=== PATIENT | male | born 1980 | race Caucasian/White ===

== ENCOUNTER 2018-08-16 05:26 | Day surgery (SDC) | payer MEDICAID ==
[2018-08-16] MEDS ORDERED: Dextrose 5%-Lactated Ringers 1,000 ML IV SCH (06:00)
[2018-08-16] MEDS ORDERED: fentaNYL 100 MCG/2 ML SDV ONE (07:15)
[2018-08-16] MEDS ORDERED: Glycopyrrolate 0.2 MG/ML 2 ML SDV IVPUSH ONE (07:15)
[2018-08-16] MEDS ORDERED: Propofol 200 MG/20 ML SDV ONE ×2 (07:15→07:34)
[2018-08-16] MEDS ORDERED: Midazolam 1 MG/ML 2 ML SDV ONE (07:15)
[2018-08-16 08:56] VITALS: BP 127/64
--- NOTE | 2018-08-23 13:14 | OR ---
DATE OF PROCEDURE: 08/16/2018 PREOPERATIVE DIAGNOSIS: Epigastric pain with history of gastroesophageal reflux disease and peptic ulcer disease. POSTOPERATIVE DIAGNOSES: 1. Small hiatal hernia with gastroesophageal reflux disease with multiple healing linear ulcers in esophagogastric junction. 2. [id number] antral gastritis and duodenitis. PROCEDURE: Esophagogastroduodenoscopy with: 1. Biopsies of antrum for CLOtest. 2. Biopsies of esophagogastric junction for histologic evaluation. ANESTHESIA: IV sedation. INDICATIONS FOR PROCEDURE: This is a 38-year-old presenting with ongoing problems with gastroesophageal reflux disease. The patient recently had been on omeprazole, but on 07/15/2018 was switched to Protonix 40 mg a day. On , i.e. around 3 weeks later, he felt that he had quite a bit in the way of improvement of the reflux symptoms, but he still had some discomfort across the upper abdomen. The plan is to proceed with upper GI endoscopy with biopsies as indicated. Potential risks including bleeding and perforation were discussed, and the patient wishes to proceed. DETAILS OF PROCEDURE: The patient was taken to the operating room and placed in a left lateral decubitus position. IV sedation was administered, after which the upper GI endoscope was passed orally through the length of the esophagus, and into the stomach with retroflexion view of the fundus, thereafter through the pyloric channel and into the proximal duodenum. Findings included normal hypopharynx, larynx, upper esophageal sphincter, esophageal body. At the area of the EG junction, the patient was noted to have a small hiatal hernia. There were several linear upward extensions which were at this point covered with what appeared to be some healing type fibrinous exudate consistent with healing of linear ulcers. There was no stricturing, plaquing, or gross sense of neoplasia within the stomach on retroflexion view of the small hiatal hernia. In the antrum, there was some dgyr-ne-dyoorzzy antral gastritis, but with no erosions or ulcers, and associated duodenitis involving the duodenal bulb again without erosions or ulcers beyond the duodenal bulb at the junction of the third and fourth portions of the duodenum, the findings were otherwise normal. At this point, biopsies were obtained from the antrum and sent for CLOtest for H. pylori. Multiple biopsies were then obtained from the esophagogastric junction and sent for histologic evaluation. Minimal bleeding from the biopsy sites was seen and the procedure then concluded. The patient was taken to the recovery room in satisfactory condition. At this point, the patient's symptoms appeared to be improved quite a bit on the Protonix. We will see the patient back in 1 month and make sure those remain improved. I discussed long-term treatment options. At the age of 38, he may wish to opt for surgical antireflux procedure and avoid medical management, particularly if that medical management controlling his symptoms. We will also need to consider whether or not he might be having some side effects of the Protonix. If he continues to have the more nebulous upper and mid abdominal pain, at that point plan will be to see the patient back in 1 month for recheck. Kashif Vieira MD /[id number]
== END 2018-08-16 08:50 | disposition home or self-care (01) ==
LOC: JP.SDS 05:26
PROVIDERS: ATTEND Surgery
DX: K29.70 Gastritis, unspecified, without bleeding (principal); K29.80 Duodenitis without bleeding; K21.9 Gastro-esophageal reflux disease without esophagitis; K44.9 Diaphragmatic hernia without obstruction or gangrene; E66.9 Obesity, unspecified; F17.210 Nicotine dependence, cigarettes, uncomplicated; Z87.11 Personal history of peptic ulcer disease; Z79.899 Other long term (current) drug therapy
CPT/HCPCS: 87081; 88305; J2250; J2704; J3010; J3490; J7042

== ENCOUNTER 2018-08-26 05:12 | Emergency (ER) | payer MEDICAID ==
[2018-08-26] MEDS ORDERED: Ketorolac 30 MG/ML SDV IVPUSH ONE (05:54)
[2018-08-26] MEDS ORDERED: methylPREDNISolone Sodium Succinate 125 MG/2 ML SDV IVPUSH ONE (05:54)
[2018-08-26] MEDS ORDERED: Sodium Chloride 0.9% 1,000 ML IV SCH (06:00)
--- NOTE | 2018-08-26 06:30 | EDM.PDOC ---
<Juan Smith - Last Filed: 08/26/18 06:27> ED HPI GENERAL MEDICAL PROBLEM - General Chief Complaint: ENT Problem Stated Complaint: SORE THROAT, TESTED POSITIVE FOR STREP Time Seen by Provider: 08/26/18 06:05 Source of Information: Reports: Patient History Limitations: Reports: No Limitations - History of Present Illness INITIAL COMMENTS - FREE TEXT/NARRATIVE: 38-year-old male who was diagnosed with strep 3 days ago, but has been on cephalexin for the last 3 days. The left side of his throat has worsened over the past day, he is having difficulty swallowing and pain is radiating to the left ear and is very uncomfortable. His family also tested positive for strep, they are improving. He denies any significant fevers or chills. No other symptoms such as cough or shortness of breath. The pain is particularly bad on the left side. Onset: Gradual (Worse over the last 24 hours) Worsens with: Reports: Other (Swallowing) Associated Symptoms: Denies: Chest Pain, Cough, Fever/Chills, Nausea/Vomiting Treatments TALENT ACQUISITION LEAD: Reports: Acetaminophen, Other (see below) Other Treatments TALENT ACQUISITION LEAD: antibiotics Throat Pain Score (Numeric/FACES): 6 - Related Data Allergies Allergy/AdvReac Type Severity Reaction Status Date / Time No Known Allergies Allergy Verified 08/26/18 05:42 Home Meds: Home Meds Pantoprazole Sodium [Protonix] 40 mg PO DAILY 08/12/18 [History] Ketorolac [Toradol] 10 mg PO TID PRN #20 tab 08/26/18 [Rx] cephALEXin [Cephalexin] 500 mg PO BID 08/26/18 [History] Past Medical History Gastrointestinal History: Reports: GERD Musculoskeletal History: Reports: Fracture Endocrine/Metabolic History: Reports: Obesity/BMI 30+ - Infectious Disease History Infectious Disease History: Reports: Chicken Pox - Past Surgical History HEENT Surgical History: Reports: Other (See Below) Other HEENT Surgeries/Procedures: wisdom teeth extraction GI Surgical History: Reports: Appendectomy, EGD Other GI Surgeries/Procedures: Hiatal hernia Other Musculoskeletal Surgeries/Procedures:: fractures of right leg at age 5. fracture to left arm at age 11 Social & Family History - Family History Family Medical History: Noncontributory Cardiac: Reports: Hypertension - Tobacco Use Smoking Status *Q: Current Every Day Smoker Years of Tobacco use: 15 Packs/Tins Daily: 0.7 Second Hand Smoke Exposure: Yes - Caffeine Use Caffeine Use: Reports: Coffee, Soda - Recreational Drug Use Recreational Drug Use: No ED ROS ENT - Review of Systems Review Of Systems: See Below Constitutional: Denies: Fever, Chills HEENT: Reports: Ear Pain (Left side), Throat Pain Respiratory: Denies: Shortness of Breath Cardiovascular: Denies: Chest Pain GI/Abdominal: Denies: Nausea, Vomiting Skin: Reports: No Symptoms Neurological: Reports: No Symptoms ED EXAM, ENT - Physical Exam Exam: See Below Exam Limited By: No Limitations General Appearance: Alert, No Apparent Distress (Patient is uncomfortable but not acutely distressed) Ears: Normal TMs Mouth/Throat: Other (Patient has bilateral tonsillar erythema, swelling and exudate with a small amount of increased soft tissue swelling on the left side.) Head: Atraumatic Neck: Lymphadenopathy (L) (Cervical adenopathy is more pronounced on the left, more tender) Respiratory/Chest: No Respiratory Distress, Lungs Clear Course - Vital Signs Last Recorded V/S: Last Vital Signs Temp 95.6 F 08/26/18 08:02 Pulse 85 08/26/18 08:02 Resp 16 08/26/18 08:02 BP 144/91 H 08/26/18 08:02 Pulse Ox 98 08/26/18 08:02 - Orders/Labs/Meds Orders: Active Orders 24 hr Category Date Time Status Soft Tissue Neck w Cont [CT] Stat Exams 08/26/18 06:41 Taken Iopamidol [Isovue-300 (61%)] Med 08/26/18 06:49 Active 100 ml IV . DIRECTED PRN Sodium Chloride 0.9% [Normal Saline] 1,000 ml Med 08/26/18 06:00 Active IV ASDIRECTED Sodium Chloride 0.9% [Normal Saline] 70 ml Med 08/26/18 07:00 Active IV ASDIRECTED Sodium Chloride 0.9% [Saline Flush] Med 08/26/18 07:00 Active 10 ml FLUSH ONETIME Medication Orders Sodium Chloride (Normal Saline) 1,000 mls @ 500 mls/hr IV ASDIRECTED NAYAN Last Admin: 08/26/18 06:08 Dose: 500 mls/hr Sodium Chloride (Normal Saline) 70 mls @ 3 mls/sec IV ASDIRECTED NAYAN Last Admin: 08/26/18 07:44 Dose: 3 mls/sec Iopamidol (Isovue-300 (61%)) 100 ml IV . DIRECTED PRN PRN Reason: RADIOLOGY EXAM Stop: 08/27/18 06:50 Last Admin: 08/26/18 07:44 Dose: 100 ml Sodium Chloride (Saline Flush) 10 ml FLUSH ONETIME [facility] Last Admin: 08/26/18 07:44 Dose: 10 ml Labs: Laboratory Tests 08/26/18 08/26/18 08/26/18 Range/Units 06:10 06:10 06:10 WBC 9.2 (4.5-11.0) K/uL RBC 5.50 (4.30-5.90) M/uL Hgb 15.5 H (12.0-15.0) g/dL Hct 45.3 (40.0-54.0) % MCV 82 (80-98) fL MCH 28 (27-31) pg MCHC 34 (32-36) % Plt Count 178 (150-400) K/uL Neut % (Auto) 64 (36-66) % Lymph % (Auto) 22 L (24-44) % Evangeline % (Auto) 12 H (2-6) % Eos % (Auto) 2 (2-4) % Baso % (Auto) 1 (0-1) % Sodium 137 L (140-148) mmol/L Potassium 4.2 (3.6-5.2) mmol/L Chloride 101 (100-108) mmol/L Carbon Dioxide 28 (21-32) mmol/L Anion Gap 12.2 (5.0-14.0) mmol/L BUN 14 (7-18) mg/dL Creatinine 0.9 (0.8-1.3) mg/dL Est Cr Clr Drug Dosing 117.16 mL/min Estimated GFR (MDRD) > 60 (>60) Glucose 98 (74-106) mg/dL Calcium 9.5 (8.5-10.1) mg/dL Monoscreen Negative (NEGATIVE) Meds: Medications Generic Name Dose Route Start Last Admin Trade Name Freq PRN Reason Stop Dose Admin Sodium Chloride 1,000 mls @ 500 mls/hr 08/26/18 06:00 08/26/18 06:08 Normal Saline IV 500 mls/hr ASDIRECTED NAYAN Administration Sodium Chloride 70 mls @ 3 mls/sec 08/26/18 07:00 08/26/18 07:44 Normal Saline IV 3 mls/sec ASDIRECTED NAYAN Administration Iopamidol 100 ml 08/26/18 06:49 08/26/18 07:44 Isovue-300 (61%) IV 08/27/18 06:50 100 ml . DIRECTED PRN Administration RADIOLOGY EXAM Sodium Chloride 10 ml 08/26/18 07:00 08/26/18 07:44 Saline Flush FLUSH 10 ml ONETIME NAYAN Administration Discontinued Medications Generic Name Dose Route Start Last Admin Trade Name Gentryq PRN Reason Stop Dose Admin Ketorolac Tromethamine 30 mg 08/26/18 05:54 08/26/18 06:10 Toradol IVPUSH 08/26/18 05:55 30 mg ONETIME ONE Administration Methylprednisolone Sodium Succinate 125 mg 08/26/18 05:54 08/26/18 06:13 Solu-Medrol IVPUSH 08/26/18 05:55 125 mg ONETIME ONE Administration - Re-Assessments/Exams Free Text/Narrative Re-Assessment/Exam: 08/26/18 06:29 An IV was started, patient was hydrated with normal saline, given 125 mg of IV Solu-Medrol and 30 mg of IV Toradol. CBC and Monospot were obtained as well as a BMP, its likely will need a soft tissue CT scan to assess for peritonsillar abscess on the left side. Departure - Departure Disposition: Home, Self-Care 01 Clinical Impression: Acute streptococcal pharyngitis - Discharge Information Referrals: Sj Rivas MD [Primary Care Provider] - Forms: ED Department Discharge Additional Instructions: Complete course of antibiotics I restarted, your prescription for Toradol has been faxed to [facility] use this medication as needed for pain control, Please followup with your primary care provider in 3-5 days if not better, please call return to the emergency department with worsening of symptoms. <OfficerPantera - Last Filed: 08/26/18 08:19> Departure - Departure Time of Disposition: 08:18 Condition: Good - Assessment/Plan Plan: Assessment Acuity = acute Site and laterality = streptococcal pharyngitis Etiology = group A streptococcus Manifestations = early phlegmon versus abscess 13 mm x 5 mm Location of injury = Home Lab values = CBC, BMP, Monospot all negative CT scan describes a phlegmon versus abscess left tonsillar pillar Plan I did review lab work and CT scan results with him he had good relief from Toradol plan is to fax a prescription to [facility] for Toradol 10 mg by mouth 3 times a day when necessary total #20 follow-up with primary care 3-5 days, complete the course of cephalexin constitution party initiated This note was dictated using [employer] voice recognition software please call with any questions on syntax or grammar.
[2018-08-26] MEDS ORDERED: Iopamidol 612 MG/ML 100 ML Bottle IV PRN (06:49)
[2018-08-26] MEDS ORDERED: Sodium Chloride 0.9% 10 ML Syringe FLUSH SCH (07:00)
[2018-08-26 08:06] VITALS: BP 144/91
== END 2018-08-26 08:35 | disposition home or self-care (01) ==
LOC: JP.ED 05:12
DX: J02.0 Streptococcal pharyngitis (principal); K21.9 Gastro-esophageal reflux disease without esophagitis; F17.210 Nicotine dependence, cigarettes, uncomplicated; Z79.899 Other long term (current) drug therapy
CPT/HCPCS: 36415; 70491; 80048; 85025; 86308; 96361; 96374; 96375; 99284; J1885; J2930; J7030; Q9967

== ENCOUNTER 2018-08-29 23:20 | Emergency (ER) | payer MEDICAID ==
[2018-08-29 23:58] VITALS: BP 149/101
--- NOTE | 2018-08-30 01:12 | EDM.PDOC ---
ED HPI GENERAL MEDICAL PROBLEM - General Chief Complaint: ENT Problem Stated Complaint: SORE THROAT Time Seen by Provider: 08/29/18 23:55 Source of Information: Reports: Patient History Limitations: Reports: No Limitations - History of Present Illness INITIAL COMMENTS - FREE TEXT/NARRATIVE: pt was found to have a small abcess on cat scan. He is on clindomycin and the swelling hads gone down. He has not been able to rest and he is just concerned that he is going to get worse again like happened when he was on the keflex. Duration: Day(s): Location: Reports: Neck Quality: Reports: Sharp Associated Symptoms: Reports: Other (painful throat on the rt. ) throat Pain Score (Numeric/FACES): 2 - Related Data Allergies Allergy/AdvReac Type Severity Reaction Status Date / Time No Known Allergies Allergy Verified 08/26/18 05:42 Home Meds: Home Meds Pantoprazole Sodium [Protonix] 40 mg PO DAILY 08/12/18 [History] Ketorolac [Toradol] 10 mg PO TID PRN #20 tab 08/26/18 [Rx] Clindamycin HCl [Cleocin HCl] 300 mg PO TID 08/29/18 [History] Past Medical History Gastrointestinal History: Reports: GERD Musculoskeletal History: Reports: Fracture Endocrine/Metabolic History: Reports: Obesity/BMI 30+ - Infectious Disease History Infectious Disease History: Reports: Chicken Pox - Past Surgical History HEENT Surgical History: Reports: Other (See Below) Other HEENT Surgeries/Procedures: wisdom teeth extraction GI Surgical History: Reports: Appendectomy, EGD Other GI Surgeries/Procedures: Hiatal hernia Other Musculoskeletal Surgeries/Procedures:: fractures of right leg at age 5. fracture to left arm at age 11 Social & Family History - Family History Family Medical History: Noncontributory Cardiac: Reports: Hypertension - Tobacco Use Smoking Status *Q: Current Every Day Smoker Years of Tobacco use: 18 Packs/Tins Daily: 0.8 - Caffeine Use Caffeine Use: Reports: Coffee, Soda - Alcohol Use Days Per Week of Alcohol Use: 2 Number of Drinks Per Day: 3 Total Drinks Per Week: 6 - Recreational Drug Use Recreational Drug Use: No ED ROS ENT - Review of Systems Review Of Systems: See Below Constitutional: Reports: Malaise, Weakness, Other (left side of the throat is still quite painful and it hurts when he turns his head. ) HEENT: Reports: Throat Pain Respiratory: Reports: No Symptoms Cardiovascular: Reports: No Symptoms Endocrine: Reports: No Symptoms GI/Abdominal: Reports: No Symptoms : Reports: No Symptoms ED EXAM, ENT - Physical Exam Exam: See Below Text/Narrative:: pt is concerned because he fells like he has the taste of pus going down the back of his throat. He does not have a fever. Exam Limited By: No Limitations General Appearance: Alert, Mild Distress, Other ( He still does have some swelling on the left but it has gone down. ) Ears: Normal TMs Nose: Normal Inspection Mouth/Throat: Other ( left tonsilar area is swollen more than the rt. ) Head: Atraumatic Neck: Normal Inspection Respiratory/Chest: No Respiratory Distress Course - Vital Signs Last Recorded V/S: Last Vital Signs Temp 37.0 C 08/29/18 23:56 Pulse 85 08/29/18 23:56 Resp 18 08/29/18 23:56 BP 149/101 H 08/29/18 23:56 Pulse Ox 100 08/29/18 23:56 - Orders/Labs/Meds Labs: Laboratory Tests 08/29/18 08/29/18 08/30/18 Range/Units 23:40 23:40 00:39 WBC 10.8 (4.5-11.0) K/uL RBC 5.32 (4.30-5.90) M/uL Hgb 14.7 (12.0-15.0) g/dL Hct 44.3 (40.0-54.0) % MCV 83 (80-98) fL MCH 28 (27-31) pg MCHC 33 (32-36) % Plt Count 226 (150-400) K/uL Neut % (Auto) 58 (36-66) % Lymph % (Auto) 31 (24-44) % Morrison % (Auto) 10 H (2-6) % Eos % (Auto) 1 L (2-4) % Baso % (Auto) 1 (0-1) % Sodium 140 (140-148) mmol/L Potassium 4.4 (3.6-5.2) mmol/L Chloride 102 (100-108) mmol/L Carbon Dioxide 30 (21-32) mmol/L Anion Gap 8.5 (5.0-14.0) mmol/L BUN 24 H D (7-18) mg/dL Creatinine 1.0 (0.8-1.3) mg/dL Est Cr Clr Drug Dosing 102.12 mL/min Estimated GFR (MDRD) > 60 (>60) Glucose 93 (74-106) mg/dL Calcium 9.5 (8.5-10.1) mg/dL Total Bilirubin 0.2 (0.2-1.0) mg/dL AST 34 (15-37) U/L ALT 96 H (12-78) U/L Alkaline Phosphatase 98 (46-116) U/L Total Protein 7.6 (6.4-8.2) g/dL Albumin 3.3 L (3.4-5.0) g/dL Globulin 4.3 H (2.3-3.5) g/dL Albumin/Globulin Ratio 0.8 L (1.2-2.2) Monoscreen Negative (NEGATIVE) Departure - Departure Time of Disposition: 01:11 Disposition: Home, Self-Care 01 Condition: Fair Clinical Impression: Tonsil, abscess - Discharge Information Referrals: PCP,None [Primary Care Provider] - Forms: ED Department Discharge Care Plan Goals: clindomycin --continue as ordered, cont torodol, percocet 5/325 q6h prn for pain , follow up if not improving in the next 2-3 days.
== END 2018-08-30 01:25 | disposition home or self-care (01) ==
LOC: JP.ED 23:20
DX: J36 Peritonsillar abscess (principal); K21.9 Gastro-esophageal reflux disease without esophagitis; E66.9 Obesity, unspecified; F17.200 Nicotine dependence, unspecified, uncomplicated; Z79.899 Other long term (current) drug therapy; Z79.2 Long term (current) use of antibiotics
CPT/HCPCS: 36415; 80053; 85025; 86308; 99283

== ENCOUNTER 2019-03-06 09:20 | Emergency (ER) | payer MEDICAID ==
--- NOTE | 2019-03-06 10:06 | EDM.PDOC ---
ED HPI GENERAL MEDICAL PROBLEM - General Chief Complaint: Cardiovascular Problem Stated Complaint: STOMACH ISSUES HEART FLUTTERING Time Seen by Provider: 03/06/19 09:45 Source of Information: Reports: Patient History Limitations: Reports: No Limitations - History of Present Illness INITIAL COMMENTS - FREE TEXT/NARRATIVE: 38-year-old male with a known hiatal hernia, on Prevacid has been having increased upper abdominal pressure, burping, and on a full stomach he has palpitations. This morning it was more persistent than usual so came in to have it checked. He has a lot of cardiac history in his family and is concerned about his heart. He has no radiation of pain other than up the chest substernally but not into the neck, no radiation to the back or shoulders. No shortness of breath, diaphoresis, nausea or vomiting. He is a regular smoker and is not getting exercise. Onset: Unknown/Unsure Location: Reports: Chest, Abdomen Quality: Reports: Pressure Associated Symptoms: Reports: Other (Palpitations) - Related Data Allergies Allergy/AdvReac Type Severity Reaction Status Date / Time No Known Allergies Allergy Verified 03/06/19 09:40 Home Meds: Home Meds Pantoprazole Sodium [Protonix] 40 mg PO DAILY 08/12/18 [History] Aspirin [Halfprin] 1 tab PO DAILY 03/06/19 [History] Chlorthalidone 1 tab PO DAILY 03/06/19 [History] atorvaSTATin [Lipitor] 1 tab PO DAILY 03/06/19 [History] Past Medical History Cardiovascular History: Reports: High Cholesterol, Hypertension Gastrointestinal History: Reports: GERD, Hiatal Hernia Musculoskeletal History: Reports: Fracture Endocrine/Metabolic History: Reports: Obesity/BMI 30+ - Infectious Disease History Infectious Disease History: Reports: Chicken Pox - Past Surgical History HEENT Surgical History: Reports: Other (See Below) Other HEENT Surgeries/Procedures: wisdom teeth extraction GI Surgical History: Reports: Appendectomy, EGD Social & Family History - Family History Family Medical History: Noncontributory Cardiac: Reports: Hypertension - Tobacco Use Smoking Status *Q: Light Tobacco Smoker Years of Tobacco use: 18 Packs/Tins Daily: 0.7 - Caffeine Use Caffeine Use: Reports: Coffee, Soda - Recreational Drug Use Recreational Drug Use: No ED ROS GENERAL - Review of Systems Review Of Systems: See Below Constitutional: Denies: Fever, Chills, Decreased Appetite HEENT: Reports: No Symptoms Respiratory: Denies: Shortness of Breath, Wheezing Cardiovascular: Reports: Chest Pain, Palpitations GI/Abdominal: Reports: Abdominal Pain (In the epigastric area and substernal area only). Denies: Nausea, Vomiting Skin: Reports: No Symptoms Neurological: Reports: No Symptoms Psychiatric: Reports: Anxiety ED EXAM, GENERAL - Physical Exam Exam: See Below Exam Limited By: No Limitations General Appearance: Alert, No Apparent Distress Eye Exam: Bilateral Eye: Normal Inspection Head: Atraumatic Neck: Normal Inspection Respiratory/Chest: No Respiratory Distress, Lungs Clear Cardiovascular: Regular Rate, Rhythm. No: Extra Beats GI/Abdominal: Soft, Other (Some discomfort in the upper abdomen to palpation, no focal tenderness and no rebound) Extremities: Normal Inspection. No: Pedal Edema Neurological: Alert, Oriented Psychiatric: Anxious Course - Vital Signs Last Recorded V/S: Last Vital Signs Temp 96.3 F 03/06/19 09:39 Pulse 80 03/06/19 10:01 Resp 23 H 03/06/19 10:01 BP 155/106 H 03/06/19 10:01 Pulse Ox 94 L 03/06/19 10:01 - Re-Assessments/Exams Free Text/Narrative Re-Assessment/Exam: 03/08/19 11:57 Patient was placed on campus monitor and observed for 30 minutes. He had no ectopic beats. He had no further symptoms. Explained to the patient that it is very likely related to his hiatal hernia and not cardiac. He will switch from Prevacid back to Prilosec which worked better for him. Recheck with his primary provider next week if not improving satisfactorily or return sooner if worsening. Departure - Departure Time of Disposition: 10:16 Disposition: Home, Self-Care 01 Clinical Impression: Gastroesophageal reflux disease Qualifiers: Esophagitis presence: esophagitis presence not specified Qualified Code(s): K21.9 - Gastro-esophageal reflux disease without esophagitis Instructions: Gastroesophageal Reflux Disease, Adult Referrals: Vernell Rosen MD [Primary Care Provider] - Forms: ED Department Discharge Care Plan Goals: Consider switching to 40 mg of Protonix daily. Decreasing smoking, increasing activity and weight loss would be very beneficial. Recheck with your primary provider in the next 1-2 weeks if not improving.
[2019-03-06 10:13] VITALS: BP 155/106; PULSE 80
== END 2019-03-06 10:16 | disposition home or self-care (01) ==
LOC: JP.ED 09:20
DX: K21.9 Gastro-esophageal reflux disease without esophagitis (principal); I10 Essential (primary) hypertension; F17.210 Nicotine dependence, cigarettes, uncomplicated; Z79.899 Other long term (current) drug therapy; Z79.82 Long term (current) use of aspirin; E78.00 Pure hypercholesterolemia, unspecified
CPT/HCPCS: 99283

== ENCOUNTER 2019-08-31 07:41 | Day surgery (SDC) | payer MEDICAID ==
[~2019-08-31 07:41] MED LIST: Oxymetazoline 0.05% Nasal Spray 30 ML Bottle ONE; Povidone-Iodine 10% Soln 118.25 ML Bottle ONE
[2019-08-31] MEDS: Lactated Ringers 1,000 ML IV SCH ×2 (08:17→10:21)
[2019-08-31] MEDS ORDERED: Ondansetron 4 MG/2 ML SDV ONE (08:25)
[2019-08-31] MEDS ORDERED: Glycopyrrolate 0.2 MG/ML 5 ML MDV ONE (08:25)
[2019-08-31] MEDS ORDERED: Propofol 200 MG/20 ML SDV ONE (08:25)
[2019-08-31] MEDS ORDERED: Rocuronium 50 MG/5 ML Vial ONE (08:25)
[2019-08-31] MEDS ORDERED: Dexamethasone 4 MG/ML SDV ONE ×2 (08:25→09:20)
[2019-08-31] MEDS ORDERED: Midazolam 1 MG/ML 2 ML SDV ONE (08:25)
[2019-08-31] MEDS ORDERED: fentaNYL 250 MCG/5 ML SDV ONE (08:25)
[2019-08-31] MEDS ORDERED: Neostigmine Methylsulfate 1 MG/ML 5 ML Syringe ONE (08:25)
[2019-08-31] MEDS ORDERED: fentaNYL 100 MCG/2 ML SDV ONE (10:10)
[2019-08-31] MEDS ORDERED: Acetaminophen/HYDROcodone 108-2.5 MG/5 ML Soln 15 ML UD Cup PO ONE (11:47)
[2019-08-31 12:43] VITALS: BP 139/85; PULSE 78
--- NOTE | 2019-08-31 13:33 | OR ---
DATE OF PROCEDURE: 08/31/2019 SURGEON: Sj Chavez MD PREOPERATIVE DIAGNOSES: History of peritonsillar abscess and recurrent tonsillitis. POSTOPERATIVE DIAGNOSES: History of peritonsillar abscess and recurrent tonsillitis. PROCEDURES PERFORMED: Tonsillectomy and adenoidectomy. Primary, over 12 years of age. ANESTHESIA: General. ESTIMATED BLOOD LOSS: 25 mL. DESCRIPTION OF TECHNIQUE: After satisfactory endotracheal anesthesia, a Kisha-Homero mouth gag was placed and soft palate retracted. A small moderate residual adenoid tissue was seen and removed with the Peak plasma suction curette. Some bleeders were able to be suctioned coagulated. Then, deeply-seated tonsils with moderate plica triangularis were removed using the Peak plasma cutting technique, staying right at the tonsillar fascia. The right side came out easily with bleeders suction coagulated. Left side had more scarring, and there was a persistent mid-tonsil bed arterial bleeder that resisted control with aggressive suction cauterization. This finally had to be oversewn with [id number] suture with 3-0 Vicryl with complete control of the bleeding. No other persistent bleeding site was seen in the left tonsil bed. The patient was released from mouth gag several times, and the patient even had quite a bit of coughing with gag in place and no significant bleeders were otherwise seen upon multiple rechecks. The patient, therefore, was suctioned free of clots, extubated and transferred to recovery room in stable condition. Eventual discharge medications; Hycet 15 to 20 mL p.r.n. for pain; Zofran 8 mg sublingual for nausea and vomiting; and amoxicillin 500 mg t.i.d. for five days. Sj Chavez MD /[id number]
== END 2019-08-31 12:49 | disposition home or self-care (01) ==
LOC: JP.SDS 07:41
PROVIDERS: ATTEND Otolaryngology
DX: J03.91 Acute recurrent tonsillitis, unspecified (principal); K21.0 Gastro-esophageal reflux disease with esophagitis; E78.49 Other hyperlipidemia; I10 Essential (primary) hypertension; F17.210 Nicotine dependence, cigarettes, uncomplicated; E66.01 Morbid (severe) obesity due to excess calories; Z87.09 Personal history of other diseases of the respiratory system; Z79.82 Long term (current) use of aspirin; Z79.899 Other long term (current) drug therapy; Z68.41 Body mass index [BMI] 40.0-44.9, adult
CPT/HCPCS: 88304; A9270-GY; J1100; J2250; J2405; J2704; J2710; J3010; J3490; J7120

== ENCOUNTER 2019-09-05 00:59 | Emergency (ER) | payer MEDICAID ==
[2019-09-05 01:20] VITALS: BP 149/101; PULSE 87
--- NOTE | 2019-09-05 01:27 | EDM.PDOC ---
ED HPI GENERAL MEDICAL PROBLEM - General Chief Complaint: ENT Problem Stated Complaint: BLEEDING POST SURGERY Time Seen by Provider: 09/05/19 01:17 Source of Information: Reports: Patient, RN Notes Reviewed History Limitations: Reports: No Limitations - History of Present Illness INITIAL COMMENTS - FREE TEXT/NARRATIVE: 39-year-old gentleman presents emergency department today complaint of postsurgical bleeding he is postop day 4 from a tonsillectomy secondary to an abscess. Fortunately he had spontaneous resolution of the bleeding all bleeding has stopped at this time he is very concerned no lightheadedness no syncopal event - Related Data Allergies Allergy/AdvReac Type Severity Reaction Status Date / Time No Known Allergies Allergy Verified 09/05/19 01:11 Home Meds: Home Meds Chlorthalidone 25 ng PO DAILY 03/06/19 [History] atorvaSTATin [Lipitor] 40 mg PO QAM 03/06/19 [History] Omeprazole 40 mg PO DAILY 08/29/19 [History] Past Medical History HEENT History: Reports: Other (See Below) Other HEENT History: tonsilar abcess Cardiovascular History: Reports: High Cholesterol, Hypertension Gastrointestinal History: Reports: GERD, Hiatal Hernia Musculoskeletal History: Reports: Fracture Endocrine/Metabolic History: Reports: Obesity/BMI 30+ - Infectious Disease History Infectious Disease History: Reports: Chicken Pox - Past Surgical History HEENT Surgical History: Reports: Oral Surgery, Other (See Below) Other HEENT Surgeries/Procedures: wisdom teeth extraction Cardiovascular Surgical History: Reports: None GI Surgical History: Reports: Appendectomy, EGD Endocrine Surgical History: Reports: None Musculoskeletal Surgical History: Reports: None Social & Family History - Family History Family Medical History: Noncontributory Cardiac: Reports: Hypertension - Tobacco Use Smoking Status *Q: Current Status Unknown - Caffeine Use Caffeine Use: Reports: Coffee - Recreational Drug Use Recreational Drug Use: No ED ROS ENT - Review of Systems Review Of Systems: See Below HEENT: Reports: Other (Postoperative bleeding) ED EXAM, ENT - Physical Exam Exam: See Below Text/Narrative:: Mouth mucosa is moist and pink I do appreciate the surgical scars which are consistent with a tonsillectomy there is no active bleeding site that I can appreciate an inspection Exam Limited By: No Limitations General Appearance: Alert, WD/WN, No Apparent Distress Respiratory/Chest: No Respiratory Distress Psychiatric: Anxious Course - Vital Signs Last Recorded V/S: Last Vital Signs Temp 96.1 F 09/05/19 01:16 Pulse 87 09/05/19 01:16 Resp 14 09/05/19 01:16 BP 149/101 H 09/05/19 01:16 Pulse Ox 96 09/05/19 01:16 Departure - Departure Time of Disposition: :26 Disposition: Home, Self-Care 01 Condition: Fair Clinical Impression: Postoperative bleeding from mouth - Discharge Information Referrals: Vernell Rosen MD [Primary Care Provider] - Additional Instructions: Continue with postoperative care, please return to the emergency department with bleeding that does not stop use 911 services if needed otherwise keep your follow-up appointment with ear nose and throat Sepsis Event Note - Evaluation Sepsis Screening Result: No Definite Risk - Focused Exam Vital Signs: Vital Signs Temp Pulse Resp BP Pulse Ox 09/05/19 01:16 96.1 F 87 14 149/101 H 96 Date Exam was Performed: 09/05/19 Time Exam was Performed: 01:24 - Assessment/Plan Plan: Assessment Acuity = acute Site and laterality = postoperative bleeding Etiology = tonsillectomy Manifestations = none Location of injury = Home Lab values = none Plan Elected to do watchful waiting he does live close to the emergency department will return if needed he has a follow-up with his surgeon in 1 week This note was dictated using [employer] voice recognition software please call with any questions on syntax or grammar.
== END 2019-09-05 01:37 | disposition home or self-care (01) ==
LOC: JP.ED 00:59
DX: K91.841 Postprocedural hemorrhage of a digestive system organ or structure following other procedure (principal); E78.00 Pure hypercholesterolemia, unspecified; I10 Essential (primary) hypertension; K21.9 Gastro-esophageal reflux disease without esophagitis; E66.9 Obesity, unspecified; Z68.32 Body mass index [BMI] 32.0-32.9, adult; Z79.899 Other long term (current) drug therapy
CPT/HCPCS: 99283

== ENCOUNTER 2020-07-19 15:03 | Emergency (ER) | payer MEDICAID ==
[2020-07-19 15:12] VITALS: BP 157/89; PULSE 99
[2020-07-19] MEDS ORDERED: Aspirin 81 MG Tab.Chew PO ONE (15:23)
[2020-07-19] MEDS ORDERED: Sodium Chloride 0.9% 10 ML Syringe FLUSH PRN (15:24)
--- NOTE | 2020-07-19 15:26 | EDM.PDOC ---
ED HPI GENERAL MEDICAL PROBLEM - General Chief Complaint: Cardiovascular Problem Stated Complaint: CHEST PRESSURE Time Seen by Provider: 07/19/20 15:20 Source of Information: Reports: Patient, Old Records, RN History Limitations: Reports: No Limitations - History of Present Illness INITIAL COMMENTS - FREE TEXT/NARRATIVE: 40 yo male presents with epigastric pain that began just after getting off a treadmill. He noticed also that his HR is elevated over his normal. Is feeling better the longer he sits here. No SOB or nausea. No personal hx of cardiac dz. His grandparents are the closest relatives with CAD. He says his resting HR is normally in the low 70's and his BP around 125 systolic. Onset: Today Onset Date: 07/19/20 Duration: Minutes: Location: Reports: Chest (epigastrium) Quality: Reports: Pressure (mild) Severity: Mild Improves with: Reports: Other (time, is gradually getting better) Worsens with: Reports: Other (pressing over epigastrium) Context: Reports: Other (See HPI) Associated Symptoms: Reports: No Other Symptoms Treatments [employer]: Reports: Other (see below) (none) - Related Data Allergies Allergy/AdvReac Type Severity Reaction Status Date / Time No Known Allergies Allergy Verified 09/05/19 01:11 Home Meds: Home Meds atorvaSTATin [Lipitor] 40 mg PO QAM 03/06/19 [History] Omeprazole 40 mg PO DAILY 08/29/19 [History] Losartan [Cozaar] 50 mg PO DAILY 07/19/20 [History] Past Medical History HEENT History: Reports: Other (See Below) Other HEENT History: tonsilar abcess Cardiovascular History: Reports: High Cholesterol, Hypertension Gastrointestinal History: Reports: GERD, Hiatal Hernia Musculoskeletal History: Reports: Fracture Endocrine/Metabolic History: Reports: Obesity/BMI 30+ - Infectious Disease History Infectious Disease History: Reports: Chicken Pox - Past Surgical History HEENT Surgical History: Reports: Oral Surgery, Other (See Below) Other HEENT Surgeries/Procedures: wisdom teeth extraction Cardiovascular Surgical History: Reports: None GI Surgical History: Reports: Appendectomy, EGD Other GI Surgeries/Procedures: Hiatal hernia Endocrine Surgical History: Reports: None Musculoskeletal Surgical History: Reports: None Other Musculoskeletal Surgeries/Procedures:: fractures of right leg at age 5. fracture to left arm at age 11 Social & Family History - Family History Family Medical History: No Pertinent Family History Cardiac: Reports: Hypertension - Caffeine Use Caffeine Use: Reports: Coffee - Recreational Drug Use Recreational Drug Use: No ED ROS GENERAL - Review of Systems Review Of Systems: See Below Constitutional: Reports: No Symptoms HEENT: Reports: No Symptoms Respiratory: Reports: No Symptoms Cardiovascular: Reports: Chest Pain (epigastric) GI/Abdominal: Reports: Abdominal Pain (epigastric). Denies: Black Stool, Bloody Stool, Hematemesis, Nausea, Vomiting : Reports: No Symptoms Musculoskeletal: Reports: No Symptoms Skin: Reports: No Symptoms Neurological: Reports: No Symptoms Psychiatric: Reports: No Symptoms ED EXAM, GENERAL - Physical Exam Exam: See Below Exam Limited By: No Limitations General Appearance: Alert, WD/WN, No Apparent Distress, Obese Eye Exam: Bilateral Eye: Normal Inspection Ears: Normal External Exam, Normal Canal, Hearing Grossly Normal Ear Exam: Bilateral Ear: Auricle Normal, Canal Normal Nose: Normal Inspection, No Blood Throat/Mouth: Normal Inspection, Normal Lips, Normal Oropharynx, Normal Voice, No Airway Compromise Head: Atraumatic, Normocephalic Neck: Normal Inspection Respiratory/Chest: No Respiratory Distress, Lungs Clear, Normal Breath Sounds, No Accessory Muscle Use Cardiovascular: Regular Rate, Rhythm, No Edema, Tachycardia GI/Abdominal: Normal Bowel Sounds, Soft, No Distention, Tender (epigastrium only). No: Non-Tender, Distended Back Exam: Normal Inspection Extremities: Normal Inspection, Normal Range of Motion, Non-Tender, No Pedal Edema Neurological: Alert, Oriented, CN II-XII Intact, Normal Cognition, No Motor/Sensory Deficits Psychiatric: Normal Affect, Normal Mood Skin Exam: Warm, Dry, Intact, Normal Color, No Rash #1 Interpretation EKG Date: 07/19/20 Time: 15:10 Rhythm: NSR Rate (Beats/Min): 98 Hodges: Normal P-Wave: Present QRS: Normal ST-T: Normal QT: Normal (? T wave inverstion lead III) Comparison: NA - No Prior EKG Course - Vital Signs Text/Narrative:: Orthostatic vitals normal. Has a bit of an elevated anion gap. Says he has been eating less and exercising more to try to lose weight. I am going to have lab do a UA dip to see if there are ketones present. If so this may by the source of his anion gap. Says he walked/ran for 50 min on a treadmill before coming in. Last Recorded V/S: Last Vital Signs Temp 36.9 C 07/19/20 15:11 Pulse 99 07/19/20 15:11 Resp 16 07/19/20 15:11 BP 157/89 H 07/19/20 15:11 Pulse Ox 98 07/19/20 15:11 Orthostatic Blood Pressure [ 131/90 Standing] Orthostatic Blood Pressure [ 137/85 Sitting] Orthostatic Blood Pressure [ 137/77 Supine] - Orders/Labs/Meds Orders: Active Orders 24 hr Category Date Time Status Cardiac Monitoring [RC] .As Directed Care 07/19/20 15:24 Active EKG Documentation Completion [RC] ASDIRECTED Care 07/19/20 15:24 Active Orthostatic Vital Signs [RC] ASDIRECTED Care 07/19/20 15:54 Active Sodium Chloride 0.9% [Saline Flush] Med 07/19/20 15:24 Active 10 ml FLUSH ASDIRECTED PRN Saline Lock Insert [OM.PC] Routine Oth 07/19/20 15:24 Ordered EKG 12 Lead [EK] Routine Ther 07/19/20 15:24 Ordered Medication Orders Sodium Chloride (Saline Flush) 10 ml FLUSH ASDIRECTED PRN PRN Reason: Keep Vein Open Last Admin: 07/19/20 15:36 Dose: 10 ml Documented by: JEANETH Labs: Laboratory Tests 07/19/20 07/19/20 07/19/20 Range/Units 15:17 15:17 16:05 WBC 8.5 (4.5-11.0) K/uL RBC 5.77 (4.30-5.90) M/uL Hgb 15.6 H (12.0-15.0) g/dL Hct 48.6 (40.0-54.0) % MCV 84 (80-98) fL MCH 27 (27-31) pg MCHC 32 (32-36) % Plt Count 203 (150-400) K/uL D-Dimer, Quantitative (0.0-500.0) ng/mL Sodium 139 L (140-148) mmol/L Potassium 4.1 (3.6-5.2) mmol/L Chloride 102 (100-108) mmol/L Carbon Dioxide 24 (21-32) mmol/L Anion Gap 17.1 H (5.0-14.0) mmol/L BUN 17 (7-18) mg/dL Creatinine 1.0 (0.8-1.3) mg/dL Est Cr Clr Drug Dosing 103.42 mL/min Estimated GFR (MDRD) > 60 (>60) Glucose 99 (74-106) mg/dL Calcium 9.7 (8.5-10.1) mg/dL Troponin I < 0.017 (0.000-0.056) ng/mL Urine Color Yellow (YELLOW) Urine Appearance Clear (CLEAR) Urine pH 5.5 (5.0-8.0) Ur Specific [place] >= 1.030 (1.008-1.030) Urine Protein Negative (NEGATIVE) mg/dL Urine Glucose (UA) Negative (NEGATIVE) mg/dL Urine Ketones Negative (NEGATIVE) mg/dL Urine Occult Blood Negative (NEGATIVE) Urine Nitrite Negative (NEGATIVE) Urine Bilirubin Negative (NEGATIVE) Urine Urobilinogen 0.2 (0.2-1.0) EU/dL Ur Leukocyte Esterase Negative (NEGATIVE) 07/19/20 Range/Units 16:17 WBC (4.5-11.0) K/uL RBC (4.30-5.90) M/uL Hgb (12.0-15.0) g/dL Hct (40.0-54.0) % MCV (80-98) fL MCH (27-31) pg MCHC (32-36) % Plt Count (150-400) K/uL D-Dimer, Quantitative 296.85 (0.0-500.0) ng/mL Sodium (140-148) mmol/L Potassium (3.6-5.2) mmol/L Chloride (100-108) mmol/L Carbon Dioxide (21-32) mmol/L Anion Gap (5.0-14.0) mmol/L BUN (7-18) mg/dL Creatinine (0.8-1.3) mg/dL Est Cr Clr Drug Dosing mL/min Estimated GFR (MDRD) (>60) Glucose (74-106) mg/dL Calcium (8.5-10.1) mg/dL Troponin I (0.000-0.056) ng/mL Urine Color (YELLOW) Urine Appearance (CLEAR) Urine pH (5.0-8.0) Ur Specific [place] (1.008-1.030) Urine Protein (NEGATIVE) mg/dL Urine Glucose (UA) (NEGATIVE) mg/dL Urine Ketones (NEGATIVE) mg/dL Urine Occult Blood (NEGATIVE) Urine Nitrite (NEGATIVE) Urine Bilirubin (NEGATIVE) Urine Urobilinogen (0.2-1.0) EU/dL Ur Leukocyte Esterase (NEGATIVE) Meds: Medications Generic Name Dose Route Start Last Admin Trade Name Freq PRN Reason Stop Dose Admin Sodium Chloride 10 ml 07/19/20 15:24 07/19/20 15:36 Saline Flush FLUSH 10 ml ASDIRECTED PRN Administration Keep Vein Open Discontinued Medications Generic Name Dose Route Start Last Admin Trade Name Freq PRN Reason Stop Dose Admin Al Hydroxide/Mg Hydroxide 30 ml 07/19/20 15:36 07/19/20 16:00 Mag-Al Plus PO 07/19/20 15:37 30 ml ONETIME ONE Administration Aspirin 324 mg 07/19/20 15:23 07/19/20 15:25 Aspirin PO 07/19/20 15:24 324 mg ONETIME ONE Administration - Re-Assessments/Exams Free Text/Narrative Re-Assessment/Exam: 07/19/20 16:55 Feels back to normal at time of discharge Departure - Departure Time of Disposition: 16:55 Disposition: Home, Self-Care 01 Condition: Good Clinical Impression: Tachycardia Referrals: Vernell Rosen MD [Primary Care Provider] - Forms: ED Department Discharge Additional Instructions: Drink enough fluids so that your urine is light yellow in color. Return or see your doctor as needed. Sepsis Event Note (ED) - Evaluation Sepsis Screening Result: No Definite Risk - Focused Exam Vital Signs: Vital Signs Temp Pulse Resp BP Pulse Ox 07/19/20 15:11 36.9 C 99 16 157/89 H 98 - My Orders Last 24 Hours: My Active Orders 07/19/20 15:24 Cardiac Monitoring [RC] .As Directed EKG Documentation Completion [RC] ASDIRECTED Sodium Chloride 0.9% [Saline Flush] 10 ml FLUSH ASDIRECTED PRN Saline Lock Insert [OM.PC] Routine EKG 12 Lead [EK] Routine 07/19/20 15:54 Orthostatic Vital Signs [RC] ASDIRECTED - Assessment/Plan Last 24 Hours: My Active Orders 07/19/20 15:24 Cardiac Monitoring [RC] .As Directed EKG Documentation Completion [RC] ASDIRECTED Sodium Chloride 0.9% [Saline Flush] 10 ml FLUSH ASDIRECTED PRN Saline Lock Insert [OM.PC] Routine EKG 12 Lead [EK] Routine 07/19/20 15:54 Orthostatic Vital Signs [RC] ASDIRECTED
[2020-07-19] MEDS ORDERED: Aluminum Hydroxide/Magnesium Hydroxide/Simethicone Susp 30 ML Cup PO ONE (15:36)
== END 2020-07-19 17:15 | disposition home or self-care (01) ==
LOC: JP.ED 15:03
DX: R00.0 Tachycardia, unspecified (principal); R10.13 Epigastric pain; I10 Essential (primary) hypertension; E78.00 Pure hypercholesterolemia, unspecified; K21.9 Gastro-esophageal reflux disease without esophagitis; E66.9 Obesity, unspecified; Z68.41 Body mass index [BMI] 40.0-44.9, adult; Z79.899 Other long term (current) drug therapy
CPT/HCPCS: 36415; 80048; 81003; 84484; 85027; 85379; 93005; 99285; A9270; 93010

== ENCOUNTER 2022-05-09 08:03 | Day surgery (SDC) | payer MEDICAID ==
[2022-05-09] MEDS ORDERED: Midazolam 1 MG/ML 2 ML SDV ONE (09:01)
[2022-05-09] MEDS ORDERED: fentaNYL 100 MCG/2 ML SDV ONE (09:01)
[2022-05-09] MEDS ORDERED: Propofol 200 MG/20 ML SDV ONE (09:01)
[2022-05-09] MEDS: Sodium Chloride 0.9% 1,000 ML IV SCH (09:01)
[2022-05-09 10:41] VITALS: PULSE 73
[2022-05-09 10:52] VITALS: BP 142/79
== END 2022-05-09 11:00 | disposition home or self-care (01) ==
LOC: JP.SDS 08:03
PROVIDERS: ATTEND Surgery
DX: K21.00 Gastro-esophageal reflux disease with esophagitis, without bleeding (principal); I10 Essential (primary) hypertension; K21.9 Gastro-esophageal reflux disease without esophagitis; E66.9 Obesity, unspecified; Z79.899 Other long term (current) drug therapy
CPT/HCPCS: 88305; J2250; J2704; J3010; J7030

== ENCOUNTER 2024-08-27 05:29 | Emergency (ER) | payer MEDICAID ==
[2024-08-27 05:46] VITALS: BP 168/99; PULSE 90
[2024-08-27 06:07] LABS: BASOPHILS ABSOLUTE AUTO 0.03 K/uL (0.00-0.10); BASOPHILS PERCENT AUTO 0.5 % (0.1-1.3); EOSINOPHILS ABSOLUTE AUTO 0.14 K/uL (0.00-0.40); EOSINOPHILS PERCENT AUTO 2.5 % (0.0-5.4); HEMATOCRIT 43.9 % (38.4-49.7); IMMATURE GRAN ABSOLUTE AUTO 0.04 K/uL (0.00-0.23); IMMATURE GRAN PERCENT AUTO 0.7 % (0.0-0.7); LYMPHOCYTES PERCENT AUTO 36.9 % (11.4-47.7); MEAN CORPUSCULAR HEMOGLOBIN 28.7 pg (31.6-35.5); MEAN CORPUSCULAR HGB CONC 34.2 g/dL (31.6-35.5); MEAN CORPUSCULAR VOLUME 83.9 fL (81.4-99.0); MONOCYTES ABSOLUTE AUTO 0.57 K/uL (0.20-0.90); NEUTROPHILS ABSOLUTE AUTO 2.81 K/uL (1.0-7.6); NEUTROPHILS PERCENT AUTO 49.4 % (40.0-78.1); PLATELET COUNT,PLT 154 K/uL (130-375); RED BLOOD CELL COUNT 5.23 M/uL (4.14-5.76); WHITE BLOOD CELL COUNT,WBC 5.7 K/uL (3.2-11.0)
[2024-08-27 06:25] LABS: ANION GAP 8.9 mmol/L (5.0-14.0); CREATININE 0.9 mg/dL (0.8-1.3); EST CRCL DRUG DOSING (CG) 110.67 mL/min
== END 2024-08-27 07:05 | disposition home or self-care (01) ==
LOC: JP.ED 05:29
DX: K92.1 Melena (principal); I10 Essential (primary) hypertension; K21.9 Gastro-esophageal reflux disease without esophagitis; E78.00 Pure hypercholesterolemia, unspecified; E66.9 Obesity, unspecified; Z86.16 Personal history of COVID-19; Z90.49 Acquired absence of other specified parts of digestive tract; Z79.899 Other long term (current) drug therapy
CPT/HCPCS: 36415; 80048; 82272; 85025; 86140; 99284

== ENCOUNTER 2024-09-13 09:30 | Day surgery (SDC) | payer MEDICAID, OTHER ==
[2024-09-13] MEDS: Lactated Ringers 1,000 ML IV SCH (10:10)
[2024-09-13] MEDS ORDERED: Midazolam 1 MG/ML 2 ML SDV ONE (10:22)
[2024-09-13] MEDS ORDERED: Propofol 200 MG/20 ML SDV ONE (10:22)
[2024-09-13] MEDS ORDERED: fentaNYL 50 MCG/ML SDV ONE (10:22)
[2024-09-13 12:27] VITALS: BP 144/89; PULSE 67
== END 2024-09-13 12:35 | disposition home or self-care (01) ==
LOC: JP.SDS 09:30
PROVIDERS: ATTEND Surgery
DX: Z12.11 Encounter for screening for malignant neoplasm of colon (principal); D12.3 Benign neoplasm of transverse colon; D12.5 Benign neoplasm of sigmoid colon; K21.9 Gastro-esophageal reflux disease without esophagitis; I10 Essential (primary) hypertension; E78.5 Hyperlipidemia, unspecified
CPT/HCPCS: 00811; 45385; J2250; J2704; J3010; J7120